=== PATIENT | male | born 1965 | race Caucasian/White ===

== ENCOUNTER 2017-06-25 13:20 | Emergency (ER) | payer OTHER ==
[2017-06-25 13:33] VITALS: BP 134/79; PULSE 82; RESP 18; TEMP 98.5
--- NOTE | 2017-06-25 13:48 | ED ---
General Adult HPI - General Chief complaint: Extremity Problem,Nontraumatic Stated complaint: Knee Pain, poss water retention Time Seen by Provider: 06/25/17 13:35 Source: patient, RN notes reviewed Mode of arrival: wheelchair Limitations: no limitations - History of Present Illness Initial comments: 52-year-old male presents to the emergency Department chief complaint of left knee pain. Patient is about 2 weeks ago he is working out and he felt a pop in his knee. Patient states he is continuing to work out he was continuing to be able to use the just favoring it. Patient states now getting more stiff and more swollen. Patient states that his pain is moderate he's been wrapping it and icing it but he continues to have signs he should be seen. Patient denies any pain in the left ankle any pain to left hip. Patient states it is not currently having any other symptoms with this. Patient denies any significant health history.Patient denies any recent fever, chills, shortness of breath, chest pain, back pain, abdominal pain, nausea vomiting, numbness or tingling, dysuria or hematuria, constipation or diarrhea, headaches or visual changes, or any other current symptoms. - Related Data Previous Rx's Medication Instructions Recorded Ibuprofen [Motrin] 600 mg PO Q6HR PRN #20 tab 06/25/17 Allergies Allergy/AdvReac Type Severity Reaction Status Date / Time bee venom protein (honey bee) Allergy Swelling Verified 06/25/17 14:06 gloria Allergy Swelling Verified 06/25/17 14:06 Review of Systems ROS Statement: Those systems with pertinent positive or pertinent negative responses have been documented in the HPI. ROS Other: All systems not noted in ROS Statement are negative. Past Medical History Past Medical History: No Reported History History of Any Multi-Drug Resistant Organisms: None Reported Past Surgical History: No Surgical Hx Reported Past Psychological History: No Psychological Hx Reported Smoking Status: Never smoker Past Alcohol Use History: Occasional Past Drug Use History: None Reported General Exam - General Exam Comments Initial Comments: General: The patient is awake and alert, in no distress, and does not appear acutely ill. Neck: The neck is supple, there is no tenderness. Cardiovascular: There is a regular rate and rhythm. No murmur, rub or gallop is appreciated. Respiratory: Lungs are clear to auscultation, respirations are non-labored, breath sounds are equal. No wheezes, stridor, rales, or rhonchi. Musculoskeletal: Sensation intact with 2+ pulses at the left lower extremity. Full range of motion of the left ankle and left hip. Patient does appear to have some swelling noted to the left knee with tenderness patient anteriorly. Patient does have full range of motion. 5 out of the muscle strength testing. Neurological: CN II-XII intact, There are no obvious motor or sensory deficits. Coordination appears grossly intact. Speech is normal. Skin: Skin is warm and dry and no rashes or lesions are noted. Psychiatric: Normal mood and affect. Limitations: no limitations Course Vital Signs 06/25/17 13:31 Temperature 98.5 F Pulse Rate 82 Respiratory 18 Rate Blood Pressure 134/79 O2 Sat by Pulse 97 Oximetry Medical Decision Making - Medical Decision Making 52-year-old male presents with what appears to be a left knee sprain. At this time we discussed Motrin we discussed rest and elevation in wrapping the knee. We did give him follow-up dorsal. We discussed return parameters on the patient 's questions. He stated he understood and he is given plan. All questions have been answered. He will be discharged. - Radiology Data Radiology results: report reviewed, image reviewed Disposition Clinical Impression: Left knee sprain, Knee effusion, left Disposition: HOME SELF-CARE Condition: Stable Instructions: Knee Sprain (ED) Additional Instructions: Please use medication as discussed. Please follow up with family doctor if symptoms have not improved over the next two days. Please return to the emergency room if your symptoms increase or worsen or for any other concerns. Prescriptions: Ibuprofen [Motrin] 600 mg PO Q6HR PRN #20 tab PRN Reason: Pain Referrals: Sonido Davila MD [Primary Care Provider] - 1-2 days Maciej Lance MD [STAFF PHYSICIAN] - 1-2 days Time of Disposition: 14:20
--- NOTE | 2017-06-25 14:19 | XR ---
EXAMINATION TYPE: XR knee complete LT DATE OF EXAM: 06/25/2017 COMPARISON: NONE HISTORY: Pain TECHNIQUE: Four views are submitted. FINDINGS: Joint spaces are preserved. Osseous structures are intact. No acute fracture seen. There is a larg e suprapatellar bursal fluid collection. IMPRESSION: 1. No acute fracture or dislocation. Large suprapatellar bursal fluid collection can be associated w ith internal derangement. Correlate with MRI.
== END 2017-06-25 14:29 | disposition home or self-care (01) ==
LOC: EC 13:20
DX: S83.92XA Sprain of unspecified site of left knee, initial encounter (principal); M25.462 Effusion, left knee; Z91.018 Allergy to other foods; Z91.030 Bee allergy status; X50.9XXD Other and unspecified overexertion or strenuous movements or postures, subsequent encounter
CPT/HCPCS: 99283

== ENCOUNTER → 2017-07-03 | Outpatient (CLI) | payer OTHER ==
--- NOTE | 2017-07-03 21:24 | MR ---
EXAMINATION TYPE: MR knee LT wo con DATE OF EXAM: 07/03/2017 COMPARISON: Plain film 06/17/2017 HISTORY: swelling pain entire knee X3 weeks TECHNIQUE: Multiplanar, multisequence imaging of the left knee is performed without IV contrast. FINDINGS: MEDIAL MENISCUS: Posterior horn of the medial meniscus shows linear increased signal which extends th e articular surface. LATERAL MENISCUS: Anterior and posterior horns are intact without tear. CRUCIATE LIGAMENTS: There is some increased signal at the insertion of the anterior cruciate ligament which may represent some strain or partial tear, posterior cruciate ligament is intact COLLATERAL LIGAMENTS: The medial collateral ligament is intact and there is some tendinosis change flowers spected in the lateral collateral ligamentous complex. EXTENSOR MECHANISM: Tendinosis or mucoid degeneration changes present at the patellar tendon insertio n EFFUSION: Moderate suprapatellar joint effusion is present POPLITEAL CYST: No popliteal/lugo cyst. TRICOMPARTMENT SPACES: Intact and maintain CARTILAGE: Intact BONE MARROW SIGNAL: No focal abnormal marrow signal is appreciated. OTHER: There may be some small loose bodies. Some varicosities are noted about the knee is some subc utaneous edema changes also present IMPRESSION: Tear of the posterior horn of the medial meniscus, additional findings above.
== END | disposition home or self-care (01) ==
LOC: RADMRIMAIN 20:00
PROVIDERS: ATTEND Orthopaedic Surgery
DX: S83.242A Other tear of medial meniscus, current injury, left knee, initial encounter (principal)